=== PATIENT | male | born 1965 | race Caucasian/White ===

== ENCOUNTER 2017-06-27 14:56 | Emergency (ER) | payer BC ==
[2017-06-27] MEDS ORDERED: IPRATROPIUM/ALBUTEROL 3 ML VIAL NEB ONE ×2 (14:57→15:27)
[2017-06-27 15:46] VITALS: O2SAT 93
--- NOTE | 2017-06-27 16:29 | ED.PDOC ---
History of Present Illness - General Chief Complaint: Asthma Stated Complaint: SOB Time Seen by Provider: 06/27/17 16:20 Source: patient Exam Limitations: no limitations Additional Information: PT HERE VISITING, BECAME SOB. HX OF ASTHMA BUT HAS NOT HAD ANY RECENT PROBLEMS DOES NOT HAVE HIS INHALER HERE - History of Present Illness Timing/Duration: other - TODAY Severity: moderate Improving Factors: nothing Worsening Factors: nothing Allergies/Adverse Reactions: Allergies HORSES Allergy (Uncoded 06/27/17 15:27) Home Medications: Ambulatory Orders Albuterol Inhaler [Ventolin Hfa Inhaler] 2 puff INH Q4HR PRN #1 inh 06/27/17 Review of Systems - Review of Systems Constitutional: Denies: chills, fever EENTM: States: no symptoms reported Respiratory: States: short of breath, wheezing. Denies: cough Cardiology: Denies: chest pain, syncope Gastrointestinal/Abdominal: States: no symptoms reported Genitourinary: States: no symptoms reported Musculoskeletal: States: no symptoms reported Skin: States: no symptoms reported Neurological: States: no symptoms reported Endocrine: States: no symptoms reported Hematologic/Lymphatic: States: no symptoms reported Past Medical History (General) - Patient Medical History Hx Asthma: Yes - Social History Hx Tobacco Use: No Family Medical History - Family History Mother Family History: Unknown Physical Exam - Physical Exam General Appearance: Alert, No apparent distress Eye Exam: bilateral normal Ears, Nose, Throat: hearing grossly normal, normal ENT inspection Neck: non-tender, full range of motion, supple Respiratory: no accessory muscle use, wheezing, expiration, inspiration Cardiovascular/Chest: regular rate, rhythm, other - TACHYCARDIC Gastrointestinal/Abdominal: non tender, soft, no organomegaly Departure - Departure Clinical Impression: Asthma exacerbation Time of Disposition: 16:26 Disposition: Discharge to Home or Self Care Condition: Good Departure Forms: ED Discharge - Pt. Copy, Patient Portal Self Enrollment Instructions: Asthma -- Adult, DI for Asthma -- Adult Prescriptions: Albuterol Inhaler [Ventolin Hfa Inhaler] 2 puff INH Q4HR PRN #1 inh PRN Reason: Shortness Of Breath Home Medications: Ambulatory Orders Albuterol Inhaler [Ventolin Hfa Inhaler] 2 puff INH Q4HR PRN #1 inh 06/27/17
[2017-06-27 16:43] VITALS: BP 154/102; TEMP 97.8
== END 2017-06-27 16:49 | disposition home or self-care (01) ==
LOC: ER 14:56
DX: J45.901 Unspecified asthma with (acute) exacerbation (principal)
CPT/HCPCS: 94640; J7620